=== PATIENT | male | born 1990 | race African-American/Black ===

== ENCOUNTER 2017-02-05 15:13 | Emergency (ER) | payer SELFPAY ==
[~2017-02-05] VITALS: Ht 182.9 cm; Wt 148.0 kg
[2017-02-05 18:06] VITALS: BP 139/93
[2017-02-05] MEDS ORDERED: ACETAMINOPHEN 500 MG TABLET PO ONE (18:15)
== END 2017-02-05 18:32 | disposition home or self-care (01) ==
LOC: EMS 15:14
DX: S83.92XA Sprain of unspecified site of left knee, initial encounter (principal); Z88.8 Allergy status to other drugs, medicaments and biological substances; W21.89XA Striking against or struck by other sports equipment, initial encounter; Y93.67 Activity, basketball; Y92.89 Other specified places as the place of occurrence of the external cause; Y99.8 Other external cause status
CPT/HCPCS: 99284